=== PATIENT | male | born 1970 | race Caucasian/White ===

== ENCOUNTER 2016-07-15 08:40 | Day surgery (SDC) | payer BC ==
[2016-07-09 09:36] LABS: BASOPHILS 0.8 %; BASOPHILS ABSOLUTE 0.04 10/3/uL (0.0-0.16); EOSINOPHILS 2.5 %; EOSINOPHILS ABSOLUTE 0.13 10/3/uL (0.0-0.53); HEMATOCRIT 41.3 % (40.0-51.0); HEMOGLOBIN 14.1 g/dL (13.6-17.8); LYMPHOCYTES 29.6 %; LYMPHOCYTES ABSOLUTE 1.54 10/3/uL (0.67-4.30); MEAN CORPUS HGB CONC 34.1 g/dL (32.0-36.0); MEAN CORPUSCULAR HEMOGLOB 29.4 pg (26.0-34.0); MONOCYTES 8.1 %; MONOCYTES ABSOLUTE 0.42 10/3/uL (0.21-1.20); NEUTROPHILS ABSOLUTE 3.07 10/3/uL (2.02-8.40); PLATELET COUNT 137 10/3/uL (150-400); RBC DISTRIBUTION WIDTH 12.6 % (12.0-16.0); WHITE BLOOD CELLS 5.2 10/3/uL (4.5-10.5)
[2016-07-09 09:37] LABS: MANUAL DIFF NO %
[2016-07-09 09:42] LABS: INTERNATIONAL NORMAL RATI 1.1 UNITS (-); PARTIAL THROMBO TIME 28.8 SEC (22.5-37.2); PROTIME (NOT ORD) 13.6 SEC (12.0-14.5)
[2016-07-09 09:51] LABS: A/G RATIO 1.2 (0.7-1.9); ALBUMIN 4.4 G/DL (3.5-5.0); ALKALINE PHOSPHATASE 59 U/L (45-117); BUN (BLOOD UREA NITROGEN) 14 MG/DL (6-23); CALCIUM, SERUM 9.2 MG/DL (8.5-10.4); CHLORIDE, SERUM 105 MMOL/L (96-112); CO2 (CARBON DIOXIDE) 33 MMOL/L (24-34); CREATININE 1.02 MG/DL (0.70-1.30); GFR AFRICAN AMERICAN 103 ML/MIN (>=60); GFR NON AFRICAN AMERICAN 89 ML/MIN (>=60); GLOBULIN 3.7 G/DL (2.5-4.1); GLUCOSE, SERUM 89 MG/DL (60-99); POTASSIUM, SERUM 4.4 MMOL/L (3.5-5.3); SGOT(AST) 15 U/L (5-40); SGPT(ALT) 22 U/L (5-65); SODIUM, SERUM 143 MMOL/L (135-148); TOTAL PROTEIN 8.1 G/DL (6.0-8.5)
--- NOTE | ~2016-07-15 | OP ---
Record Of Operation [facility] [address] [place]. [address] NAME: JOSE JUAN GALLEGOS JR : 72 STATUS : [facility]#: [id number] AGE: 45 ADM/REG DATE : 07/15/16 MR#: [id number] REPORT SERV DATE: 07/15/16 DICTATED BY: MARTHA LEE III DATE: 07/15/16 REPORT STATUS : Draft TRANSCRIBED BY: MODL DATE: 07/15/16 DATE OF PROCEDURE: 07/15/2016 PREOPERATIVE DIAGNOSIS: Daily bright red rectal bleeding with anoscopic proved grade 3 internal hemorrhoids with some external hemorrhoidal tags as well as one significant papilloma in the gluteal crease 6 cm from the anal verge. POSTOPERATIVE DIAGNOSIS: Daily bright red rectal bleeding with anoscopic proved grade 3 internal hemorrhoids with some external hemorrhoidal tags as well as one significant papilloma in the gluteal crease 6 cm from the anal verge. PATHOLOGY: Grade 3 hemorrhagic internal hemorrhoids, worse on the left than the right, with internal hemorrhoids, but external tags were worse on the right posterior aspect and on the left. The papilloma was approximately 0.8 x 0.6 x 0.3 mm lesion in the gluteal crease. PROCEDURE: Anal block using 30 mL of 0.5% Marcaine with epinephrine, followed by excision of the gluteal crease papilloma, followed by an exam under anesthesia using anoscopy using a Buck anoscope. This was followed by a PPH anopexy with excision of prolapsed mucosa and internal hemorrhoids using a 33 mm stapling device. An external hemorrhoidectomy removing one protruding external tag was also performed on the right posterior aspect of the anal verge. This was followed by a rigid sigmoidoscopy to 18 cm with no additional findings. SURGEON: Martha Lee M.D. FACS. [employer]: Dante Lee RN, [facility]. ANESTHESIA: General with endotracheal tube with the patient in the dale-knife prone position supplemented with the anal block using 30 mL of 0.5% Marcaine with epinephrine. DESCRIPTION OF PROCEDURE: A time-out was called in full agreement with the patient having no known allergies and the procedures to be performed discussed with the entire staff present in the room and no discord was noted. After the time-out had been completed, the patient was prepped and draped in routine fashion. Adequate general anesthesia in the dale-knife prone position. Local anesthesia was then utilized for the anal block which was circumferentially injected around the anal canal as well as underneath the papilloma. The papilloma was then excised using ellipsing vertical incision submitted separately to Pathology. Hemostasis was achieved with cautery and 3-0 chromic sutures used to loosely approximate the dermal tissues. The Buck anoscope was then introduced. Internal exam performed showing the internal hemorrhoids on the left side to be very hemorrhagic and protruding as a grade 3 hemorrhagic hemorrhoid with lesser degree of hemorrhoid protrusion and mucosal protrusion on the left side was the predominant area and minimal grade 1 to grade 2 internal hemorrhoids on the Record Of Operation [place] [place] [id number] [facility] [place]. [address] NAME: JOSE JUAN GALLEGOS RAHUL BOWMAN : 72 STATUS : [facility] PAT#: [id number] AGE: 45 ADM/REG DATE : 07/15/16 MR#: [id number] REPORT SERV DATE: 07/15/16 DICTATED BY: MARTHA LEE III DATE: 07/15/16 REPORT STATUS : Draft TRANSCRIBED BY: MEGHNA DATE: 07/15/16 right side. The anoscope was removed and the obturator secured to the skin with 2-0 Prolene and the semicircular obturator placed in the anal canal and pursestring sutures 2-0 Prolene placed distal to the protruding hemorrhoidal tissues. These tissues were controlled with mucosal suturing circumferentially performed rotating the obturator as we went along to make a complete 360 degree pursestring. After this had been done, the stapling device was introduced through the pursestring and a timothy type hook used to pull the sutures from the pursestring up through the stapling device. The ends were tied together in gentle pressure and used to retract the pursestring up into the stapling device which was closed to a medium staple height. The stapler was fired and held in position for 3 minutes by the clock and then released and removed. A good donut was found 360 degrees excision noted and submitted separately to Pathology. After this was done, the Buck anoscope was re-introduced after removing the plastic sutured in the anoscope and the internal exam performed showing no active bleeding along the staple line. Excisional removal of external tag on the right posterior aspect was then completed using a Bovie cautery closing the hemorrhoidectomy mucosa with subcuticular sutures of 3-0 chromic. After this was completed, all areas checked. Good hemostasis noted, and a rigid sigmoidoscope introduced using the extra-large sigmoidoscope which was easily passed through the stapled circular anastomotic ring and advanced to 18 cm where some solid stool was encountered and no further advancement performed. Retraction views showed no additional mucosal lesions and good status of the hemorrhoidectomy and mucosal resection were noted. After this was done, a Gel-Foam plug with Nupercainal ointment applied and bulky dressing to the outside and the procedure concluded. Estimated blood loss 5 mL. There were no complications. The patient tolerated the procedure well. Follow up in two weeks will be planned and the patient was given a prescription for [place] 7.5/325 take every 4 hours p.r.n. for pain and Phenergan 25 mg to take every six hours p.r.n. for nausea. CARI/MEGHNA Martha Lee III, M.D. / [id number] CC: Aayush Sands III, TIUNDRA LESHAUN
[~2016-07-15 08:40] MED LIST: IBU-200200 MG PO
== END 2016-07-15 14:09 | disposition home or self-care (01) ==
LOC: SDC 08:40
PROVIDERS: Surgery
PROC: 06BY0ZC Excision of Hemorrhoidal Plexus, Open Approach (ICD-10-PCS; principal; 2016-07-15 10:45)
DX: K64.5 Perianal venous thrombosis (principal); K62.2 Anal prolapse; K64.2 Third degree hemorrhoids; G43.909 Migraine, unspecified, not intractable, without status migrainosus; Z87.891 Personal history of nicotine dependence; F43.10 Post-traumatic stress disorder, unspecified
CPT/HCPCS: 80053; 85025; 85610; 85730; 88304; 88305; 93005; J2175; J2250; J2405; J2710; J3010